=== PATIENT | female | born 1955 | race Caucasian/White ===

== ENCOUNTER 2022-09-09 03:41 | Emergency (ER) | payer MEDICARE, BC, SELFPAY ==
[2022-09-09 03:47] VITALS: BP 170/89; PULSE 85; RESP 16; TEMP 36.6; O2SAT 97
--- NOTE | 2022-09-09 03:55 | W.ED.GENAD ---
Discharge Plan Disposition Patient Disposition: Home Condition: Good Discharge Details Clinical Impression: Cough, Laryngitis ED Provider: Jadon Renteria Discharge Instructions Instructions: Laryngitis (ED), Acute Cough (ED) Additional Instructions: At this time your physical exam is very reassuring. There is a small amount of irritation in the back of your throat, which may be secondary to breathing irritating mold, mildew, dust, or rodent deterrent. Additionally there may be a component of an early viral etiology that could be causing the mild irritation that you are noticing. Please avoid any inciting environment. Take Tylenol and Motrin as needed for sore throat. If you notice any worsening of your symptoms, or any new symptoms such as vomiting, diarrhea, fever, chills, shortness of breath, chest pain, numbness, weakness, or fainting , please return immediately to the emergency department for reevaluation. Please follow up with your primary care provider as soon as possible for reassessment and reevaluation. As always, it was a pleasure participating in your medical care today. Medical Decision Making This is a pleasant 67-year-old female with a past medical history of mild stroke, hypertension, takes a daily aspirin, who does not smoke, who presents today for irritated throat mild cough. Patient states that she has been symptom-free for the last week, and she [place] camp with [place]. She went to bed fine, but then late this evening she woke up and felt a chemical burning sensation in the back of her throat. When she looked around at the other beds she noticed small rodent deterrent cubes. She did have a mild coughing episode, which then resolved and improved. Aside for the burning sensation in the back of her throat she denies any other complaints of chest pain, shortness of breath, vomiting, diarrhea, fever or chills. No other sick contacts. She left the cabin, and decided to go home early with her . They stopped off at the ER for further evaluation on their way home. Patient has no other complaints. No history of asthma or COPD. She was not exposed to any significant smoke this evening per patient. Exam demonstrates notably well-appearing female, no respiratory distress, hypoxemia, tachypnea or other significant abnormality. Posterior oropharynx demonstrates minimal erythema, minimal cobblestoning. Tympanic membranes are olivares and pearly. Lungs are notably clear with no wheezes rales or rhonchi. The remainder of her exam is very reassuring. Patient does not want a chest x-ray at this time. There is no evidence of strep throat or tonsillitis. I had a long discussion with the patient. At this time her symptoms likely represent exposure to mold, mildew, dust, and less likely potential rodent deterrent which cause mild laryngeal irritation and subsequent sore throat and coughing episode. However there is also a chance that this may be reflective of an early viral etiology. Regardless the patient appears notably clinically well with no signs of significant respiratory distress whatsoever. Patient feels very reassured, she states that she primarily just want to get checked to make sure there was nothing life-threatening going on. At this time her physical exam and clinical history not demonstrate any evidence of acute life-threatening etiology. Discussed red flags for which to return. We will give 800 mg of ibuprofen for mild laryngitis. I have extensively reviewed the treatment plan and discharge instructions with the patient. I have addressed all patient concerns at this time. The patient was made aware of what symptoms to monitor for that would warrant a return to the emergency department. Discussed the plan with the patient, they demonstrate verbal understanding and agreement with our assessment and plan at this time. The documentation in this chart was dictated using [employer] dictation software. Please excuse any dictation errors. HPI General Date/Time Provider Initiated Documentation: 09/09/22 03:43. HPI Narrative: This is a pleasant 67-year-old female with a past medical history of mild stroke, hypertension, takes a daily aspirin, who does not smoke, who presents today for irritated throat mild cough. Patient states that she has been symptom-free for the last week, and she is currently up at a camp with her family. She went to bed fine, but then late this evening she woke up and felt a chemical burning sensation in the back of her throat. When she looked around at the other beds she noticed small rodent deterrent cubes. She did have a mild coughing episode, which then resolved and improved. Aside for the burning sensation in the back of her throat she denies any other complaints of chest pain, shortness of breath, vomiting, diarrhea, fever or chills. No other sick contacts. She left the cabin, and decided to go home early with her . They stopped off at the ER for further evaluation on their way home. Patient has no other complaints. No history of asthma or COPD. She was not exposed to any significant smoke this evening per patient. Related Data Home Medications Medication Instructions Recorded Confirmed aspirin 81 mg chewable tablet 81 mg PO DAILY 09/09/22 09/09/22 atorvastatin 40 mg tablet 40 mg PO DAILY 09/09/22 09/09/22 fluoxetine 20 mg capsule (Prozac) 20 mg PO DAILY 09/09/22 09/09/22 Allergies Allergy/AdvReac Type Severity Reaction Status Date / Time No Known Allergies Allergy Unverified 09/09/22 03:57 Review of Systems All systems reviewed & are unremarkable except as noted in HPI and below PFSH All Active Problems Cough (Acute) Laryngitis (Acute) Social History Smoking risk assessment performed?: No Exam Narrative Exam Narrative: 1.Const: Well-nourished, Well-developed, appearing stated age 2.Eyes: PERRL, no conjunctival injection, and symmetrical lids. 3.ENT: Atraumatic external nose and ears. Moist MM. Neck: Symmetric, trachea midline, No thyromegaly. Minimal cobblestoning and irritation in the posterior oropharynx 4.CVS: +S1/S2, No murmurs or gallops. Peripheral pulses 2+ and equal in all extremities. Brisk capillary refill in all extremities. 5.RESP: Unlabored respiratory effort. Clear to auscultation bilaterally. No wheezes rales or rhonchi 6.GI: Soft, Nontender/Nondistended, No hepatosplenomegaly. No guarding or rebound. 7.MSK: Normocephalic/Atraumatic, Extremities w/o deformity or ttp No cyanosis or clubbing, Normal movement of all extremities 8.Skin: Warm, Dry. No rashes or lesions. 9.Neuro: director of outreach II-XII grossly intact. Sensation grossly intact, no focal neurologic deficits. 10.Psych: (AAO) x3. Appropriate mood and affect
[2022-09-09] MEDS: Ibuprofen 800 MG TAB PO (04:01)
== END 2022-09-09 04:03 | disposition home or self-care (01) ==
LOC: ER 04:59
PROVIDERS: Emergency Provider Student in an Organized Health Care Education/Training Program
DX: R05.9 Cough, unspecified (principal); J04.0 Acute laryngitis
CPT/HCPCS: 99283